=== PATIENT | female | born 1965 | race Caucasian/White ===

== ENCOUNTER 2020-06-04 18:11 | Emergency (ER) | payer OTHER ==
[~2020-06-04 18:11] MED LIST: BACTRIM DS TAB1 EACH PO; IBUPROFEN800 MG PO; KEFLEX500 MG PO; PREDNISONE 20MG20 MG PO
[2020-06-04] MEDS ORDERED: NORCO 5-325 TA1 EACH PO (19:51)
== END 2020-06-04 20:14 | disposition home or self-care (01) ==
LOC: FER 18:11
DX: S42.291A Other displaced fracture of upper end of right humerus, initial encounter for closed fracture (principal); I25.2 Old myocardial infarction; I10 Essential (primary) hypertension; W01.0XXA Fall on same level from slipping, tripping and stumbling without subsequent striking against object, initial encounter; Y92.009 Unspecified place in unspecified non-institutional (private) residence as the place of occurrence of the external cause; Z79.899 Other long term (current) drug therapy
CPT/HCPCS: 73030; 93005

== ENCOUNTER 2021-10-01 09:25 | Emergency (ER) | payer OTHER ==
[~2021-10-01 09:25] MED LIST changes: +NORCO 5-325 TA1 EACH PO
[2021-10-01 10:33] LABS: BASOPHIL 0.5 % (0-2); EOSINOPHIL 1.1 % (0-5); HGB 16.7 g/dl (12.5-16.0); LYMPHOCYTE 15.1 % (15-48); MCH 30.1 pg (25.0-31.0); MCHC 32.7 g/dL (32.0-36.0); MCV 92.1 fL (78.0-100.0); MONOCYTE 6.2 % (0-12); MPV 11.1 fL (6.0-9.5); NEUTROPHIL 76.6 % (41-80); NRBC 0; PLT 261 K/uL (150-400); RBC 5.54 M/uL (4.20-5.40); WBC 14.7 K/uL (4.0-10.5)
[2021-10-01 10:53] LABS: ALBUMIN 4.3 g/dL (3.4-5.0); BILIRUBIN - TOTAL 0.4 mg/dL (0.2-1.0); BUN/CREAT RATIO (CALC) 21.1 RATIO; CREATININE 0.9 mg/dL (0.51-0.95); GLOBULIN (CALCULATION) 4.1 g/dL; POTASSIUM 4.6 mmol/L (3.5-5.1); TOTAL PROTEIN 8.4 g/dL (6.4-8.2)
[2021-10-01 13:39] LABS: BILIRUBIN NEGATIVE (NEGATIVE); BLOOD NEGATIVE Ery/uL (NEGATIVE); CLARITY CLEAR (CLEAR); COLOR YELLOW (YELLOW); GLUCOSE (U) NORMAL (NORMAL); LEUKOCYTES 1+ Leu/uL (NEGATIVE); NITRITE NEGATIVE (NEGATIVE); PROTEIN 1+ mg/dL (NEGATIVE); SPECIFIC GRAVITY 1.025 (1.001-1.030); UROBILINOGEN 0.2 mg/dL (0.2-1.0); pH 5.5 (5.0-9.0)
[2021-10-01 14:03] LABS: CALCIUM OXALATE CRYSTALS TRACE
[2021-10-01 14:04] LABS: BACTERIA TRACE
[2021-10-01] MEDS ORDERED: IMODIUM2 MG PO (15:02)
== END 2021-10-01 15:28 | disposition home or self-care (01) ==
LOC: FER 09:25
PROVIDERS: Emergency Medicine
DX: B34.9 Viral infection, unspecified (principal); R19.7 Diarrhea, unspecified; R10.13 Epigastric pain; I10 Essential (primary) hypertension; I25.2 Old myocardial infarction; Z28.310 Unvaccinated for COVID-19; F17.290 Nicotine dependence, other tobacco product, uncomplicated
CPT/HCPCS: 36415; 80053; 81001; 82150; 85025; J2060; J7030